=== PATIENT | male | born 1980 | race Caucasian/White ===

== ENCOUNTER → 2017-08-07 | Outpatient (CLI) | payer BC ==
--- NOTE | 2017-08-07 09:21 | KCIC ---
Indication: Low back pain. Time of exam 8:57 AM Curvature and alignment is normal. Vertebral body heights are well-maintained. Disc spaces are preserved. No spondylolysis or spondylolisthesis is detected. IMPRESSION: No acute abnormality is detected. Electronically signed by: Andrew Holder MD (08/07/2017 9:17 AM) [id number]
== END | disposition home or self-care (01) ==
LOC: KCIC 08:43
PROVIDERS: ATTEND Nurse Practitioner Adult Health
DX: M54.5 Low back pain (principal)
CPT/HCPCS: 72110